=== PATIENT | female | born 2000 | race Caucasian/White ===

== ENCOUNTER 2020-01-24 13:17 | Inpatient (IN) | payer MEDICAID ==
[2020-01-24] MEDS ORDERED: Ondansetron 4 MG/2 ML SDV IVPUSH PRN (16:24)
[2020-01-24] MEDS ORDERED: Sodium Chloride 0.9% 10 ML Syringe FLUSH PRN (16:24)
[2020-01-24] MEDS ORDERED: Nalbuphine 10 MG/ML Syringe IVPUSH PRN (16:24)
[2020-01-24] MEDS ORDERED: Lactated Ringers 1,000 ML IV SCH (16:30)
[2020-01-24] MEDS ORDERED: Oxytocin/Lactated Ringers 10 UNIT/1,000 ML BAG IV SCH (16:30)
--- NOTE | 2020-01-24 16:36 | PCM.LDHP ---
L&D History of Present Illness - General Date of Service: 01/24/20 Admit Problem/Dx: Patient Status Order with Admit Dx/Problem 01/24/20 13:47 Patient Status [ADT] Routine 01/24/20 16:24 Patient Status [ADT] Routine Admission Diagnosis/Problem Admission Diagnosis/Problem Source of Information: Patient History Limitations: Reports: No Limitations - History of Present Illness Introduction:: 19 y/o at 40 4/7 who presents for concerns of labor. Doing well. Contractions about every 7 minutes. No bleeding or LOF - Related Data Allergies/Adverse Reactions: Allergies Allergy/AdvReac Type Severity Reaction Status Date / Time No Known Allergies Allergy Verified 01/24/20 14:41 Home Medications: Home Meds Vits #93/Iron Fum/FA [ Formula Tablet] 1 tab PO DAILY 01/24/20 [History] Past Medical History : 1 Para: 0 LMP (Approximate): Psychiatric History: Reports: Depression - Past Surgical History Other Surgical History Comment: No past surgical history Social & Family History - Tobacco Use Smoking Status *Q: Former Smoker - Alcohol Use Alcohol Use History: No - Recreational Drug Use Recreational Drug Use: No H&P Review of Systems - Review of Systems: Review Of Systems: See Below General: Reports: No Symptoms Pulmonary: Reports: No Symptoms Cardiovascular: Reports: No Symptoms Gastrointestinal: Reports: Abdominal Pain Genitourinary: Reports: No Symptoms Musculoskeletal: Reports: No Symptoms Psychiatric: Reports: No Symptoms Neurological: Reports: No Symptoms L&D Exam - Exam Exam: See Below - Vital Signs Weight: 52.254 kg - OB Specific Contraction Intensity: Moderate to Strong Movement: Active Heart Tones: Present Heart Tones per Min: 135 Heart Rate (FHR) Variability: Moderate (6-25 bmp) Presentation: Vertex - Clifton Score Clifton Score Cervix Position: Anterior Clifton Score Consistency: Soft Clifton Score Effacement: >80% Clifton Score Dilation: 3-4 cm Clifton Score 's Station: -1 ,0 Clifton Score Total: 11 - Exam General: Alert, Oriented, Cooperative Lungs: Clear to Auscultation, Normal Respiratory Effort Cardiovascular: Regular Rate, Regular Rhythm GI/Abdominal Exam: Soft, Non-Tender Genitourinary: Normal external exam Extremities: Normal Inspection Skin: Warm, Dry, Intact - Patient Data Lab Results Last 24 hrs: Laboratory Results - last 24 hr 01/24/20 Range/Units 13:30 SARS CoV-2 RNA Rapid BERTA Negative (NEGATIVE) - Problem List (1) Post-dates SNOMED Code(s): 88614621 ICD Code: O48.0 - POST-TERM Status: Acute Current Visit: Yes Qualifiers: Post-term type: 40-42 weeks gestation Qualified Code(s): O48.0 - Post-term Problem List Initiated/Reviewed/Updated: Yes Orders Last 24hrs: Active Orders 24 hr Category Date Time Status Patient Status [ADT] Routine ADT 01/24/20 13:47 Active Patient Status [ADT] Routine ADT 01/24/20 16:24 Active Activity as Tolerated [RC] PFP Care 01/24/20 16:24 Active Communication Order [RC] ASDIRECTED Care 01/24/20 16:24 Active Heart Tones [RC] ASDIRECTED Care 01/24/20 16:25 Active Non Stress Test [RC] PER UNIT ROUTINE Care 01/24/20 13:47 Active Notify Provider [RC] PFP Care 01/24/20 16:24 Active Notify Provider [RC] PRN Care 01/24/20 16:24 Active Peripheral IV Care [RC] . DIRECTED Care 01/24/20 16:25 Active Vital Signs [RC] PER UNIT ROUTINE Care 01/24/20 13:47 Active Regular Diet [DIET] Diet 01/24/20 Dinner Active Regular Diet [DIET] Diet 01/24/20 Dinner Active CBC W/O DIFF,HEMOGRAM [HEME] Routine Lab 01/24/20 16:24 Ordered RAPID PLASMA REAGIN,RPR [CHEM] Routine Lab 01/24/20 16:24 Ordered TYPE AND SCREEN [BBK] Routine Lab 01/24/20 16:24 Ordered Lactated Ringers [Ringers, Lactated] 1,000 ml Med 01/24/20 16:30 Active IV ASDIRECTED Nalbuphine [Nubain] Med 01/24/20 16:24 Active 10 mg IVPUSH Q2H PRN Ondansetron [Zofran] Med 01/24/20 16:24 Active 4 mg IVPUSH Q4H PRN Oxytocin/Lactated Ringers [Pitocin in LR 10 Units/1,000 Med 01/24/20 16:30 Active ML] 10 unit in 1,000 ml IV .CONTINUOUS Sodium Chloride 0.9% [Saline Flush] Med 01/24/20 16:24 Active 10 ml FLUSH ASDIRECTED PRN Electronic Heart Tones Ext w TOCO [WOMSER] Oth 01/24/20 16:24 Ordered Routine Electronic Heart Tones Internal [WOMSER] Per Unit Ot 01/24/20 16:24 Ordered Routine Peripheral IV Insertion Adult [OM.PC] Routine Oth 01/24/20 16:24 Ordered Resuscitation Status Routine Resus Stat 01/24/20 13:47 Ordered Medication Orders Lactated Ringer's (Ringers, Lactated) 1,000 mls @ 100 mls/hr IV ASDIRECTED NATALIE Oxytocin/Lactated Ringer's (Pitocin In Lr 10 Units/1,000 Ml) 10 unit in 1,000 mls @ 500 mls/hr IV .CONTINUOUS NATALIE Nalbuphine HCl (Nubain) 10 mg IVPUSH Q2H PRN PRN Reason: Pain Ondansetron HCl (Zofran) 4 mg IVPUSH Q4H PRN PRN Reason: Nausea/Vomiting Sodium Chloride (Saline Flush) 10 ml FLUSH ASDIRECTED PRN PRN Reason: Keep Vein Open Assessment/Plan Comment:: * Labs * GBS negative, no need for antibiotics * Pain management per patient preference * Anticipate
[2020-01-24] MEDS ORDERED: Lidocaine 1% 50 ML MDV ONE (21:41)
[2020-01-24] MEDS ORDERED: Lidocaine 1% 50 ML MDV INJECT ONE (21:42)
--- NOTE | 2020-01-24 22:58 | PCM.DEL ---
L & D Note - General Info Date of Service: 01/24/20 - Delivery Note Labor: Spontaneous Delivery Outcome: Livebirth Delivery Method: Spontaneous Vaginal Delivery-Single Delivery Mode: Spontaneous Presentation: Left Occiput Anterior ([place]) Nuchal Cord: None Anesthesia Type: None Amniotic Fluid Description: Clear Episiotomy Type: None Laceration: Periurethral Placenta: Intact, Spontaneous Cord: 3 Vessels Estimated Blood Loss: 200 Resuscitation Needed: Yes : Bulb Syringe, Stimulated, Warmed, Exline Used, Warmer Used Delivery Comments (Free Text/Narrative):: Patient found to be complete and began pushing. With maternal pushing effort head delivered from [place] presentation. No nuchal cord present. With gentle downward traction shoulders and body delivered. Infant placed on maternal abdomen. Cord clamped and cut. Cord blood obtained. Placenta allowed time to separate and expelled intact. Inspection of the perineum showed a small periurethral laceration. hemostatic and so not repaired - General Info Date of Service: 01/24/20 - Patient Data Vitals - Most Recent: Last Vital Signs Temp 37.4 C 01/24/20 18:55 Pulse 66 01/24/20 18:55 Resp 16 01/24/20 18:55 BP 126/75 01/24/20 18:55 Pulse Ox Weight - Most Recent: 52.254 kg - Problem List & Annotations (1) Post-dates SNOMED Code(s): 63118586 Code(s): O48.0 - POST-TERM Status: Acute Current Visit: Yes Qualifiers: Post-term type: 40-42 weeks gestation Qualified Code(s): O48.0 - Post-term (2) Vaginal delivery SNOMED Code(s): 444697230 Code(s): O80 - ENCOUNTER FOR FULL-TERM UNCOMPLICATED DELIVERY Status: Acute Current Visit: Yes - Problem List Review Problem List Initiated/Reviewed/Updated: Yes - My Orders Last 24 Hours: My Active Orders 01/24/20 13:47 Patient Status [ADT] Routine Vital Signs [RC] PER UNIT ROUTINE Resuscitation Status Routine 01/24/20 16:24 Patient Status [ADT] Routine Activity as Tolerated [RC] PFP Communication Order [RC] ASDIRECTED Notify Provider [RC] PFP Notify Provider [RC] PRN Nalbuphine [Nubain] 10 mg IVPUSH Q2H PRN Ondansetron [Zofran] 4 mg IVPUSH Q4H PRN Sodium Chloride 0.9% [Saline Flush] 10 ml FLUSH ASDIRECTED PRN Electronic Heart Tones Ext w TOCO [WOMSER] Routine Electronic Heart Tones Internal [WOMSER] Per Unit Routine Peripheral IV Insertion Adult [OM.PC] Routine 01/24/20 16:25 Peripheral IV Care [RC] . DIRECTED 01/24/20 16:30 Lactated Ringers [Ringers, Lactated] 1,000 ml IV ASDIRECTED Oxytocin/Lactated Ringers [Pitocin in LR 10 Units/1,000 ML] 10 unit in 1,000 ml IV .CONTINUOUS 01/24/20 Dinner Regular Diet [DIET] Regular Diet [DIET] 01/24/20 17:33 PATIENT RETYPE [BBK] Routine - Assessment Assessment:: PPD#0 - Plan Plan:: * Routine cares * Breast feeding * Discharge home in 1-2 days
[2020-01-24] MEDS ORDERED: Docusate Sodium 100 MG Cap PO PRN (23:10)
[2020-01-24] MEDS ORDERED: Acetaminophen 325 MG Tab PO PRN (23:10)
[2020-01-24] MEDS ORDERED: Witch Hazel Medicated Pads 40/Jar TOP PRN (23:10)
[2020-01-24] MEDS ORDERED: Benzocaine/Menthol 20%-0.5% Spray 56 GM Canister TOP PRN (23:10)
[2020-01-25] MEDS: Ibuprofen 600 MG Tab PO PRN ×2 (00:14→20:33)
--- NOTE | 2020-01-25 06:38 | PCM.PNPP ---
- General Info Date of Service: 01/25/20 Functional Status: Reports: Pain Controlled, Tolerating Diet, Ambulating, Urinating - Review of Systems General: Reports: No Symptoms Pulmonary: Reports: No Symptoms Cardiovascular: Reports: No Symptoms Gastrointestinal: Reports: No Symptoms Genitourinary: Reports: No Symptoms Musculoskeletal: Reports: No Symptoms Neurological: Reports: No Symptoms - Patient Data Vital Signs - Most Recent: Last Vital Signs Temp 36.4 C 01/25/20 05:12 Pulse 71 01/25/20 05:12 Resp 14 01/25/20 05:12 BP 111/72 01/25/20 05:12 Pulse Ox 95 01/25/20 05:12 Weight - Most Recent: 52.254 kg I&O - Last 24 Hours: Intake & Output 01/24/20 01/24/20 01/25/20 14:59 22:59 06:59 Intake Total 800 Balance 800 Lab Results - Last 24 Hours: Laboratory Results - last 24 hr 01/24/20 01/24/20 01/24/20 Range/Units 13:30 16:35 16:35 WBC 15.53 H (3.98-10.04) K/mm3 RBC 4.59 (3.98-5.22) M/mm3 Hgb 13.3 (11.2-15.7) gm/dl Hct 39.7 (34.1-44.9) % MCV 86.5 (79.4-94.8) fl MCH 29.0 (25.6-32.2) pg MCHC 33.5 (32.2-35.5) g/dl RDW Std Deviation 42.2 (36.4-46.3) fL Plt Count 182 (182-369) K/mm3 MPV 9.9 (9.4-12.3) fl RPR Non-reactive (NONREACTIVE) SARS CoV-2 RNA Rapid BERTA Negative (NEGATIVE) Blood Type Gel Antibody Screen 01/24/20 Range/Units 16:35 WBC (3.98-10.04) K/mm3 RBC (3.98-5.22) M/mm3 Hgb (11.2-15.7) gm/dl Hct (34.1-44.9) % MCV (79.4-94.8) fl MCH (25.6-32.2) pg MCHC (32.2-35.5) g/dl RDW Std Deviation (36.4-46.3) fL Plt Count (182-369) K/mm3 MPV (9.4-12.3) fl RPR (NONREACTIVE) SARS CoV-2 RNA Rapid BERTA (NEGATIVE) Blood Type A POSITIVE Gel Antibody Screen Negative Med Orders - Current: Current Medications Acetaminophen (Tylenol) 650 mg PO Q4H PRN PRN Reason: mild pain or fever Benzocaine/Menthol (Dermoplast Pain Relief [place]) 0 gm TOP ASDIRECTED PRN PRN Reason: Perineal Comfort Measure Last Admin: 01/25/20 00:15 Dose: 1 canister Documented by: Docusate Sodium (Colace) 100 mg PO BID PRN PRN Reason: Constipation Ibuprofen (Motrin) 600 mg PO Q4H PRN PRN Reason: Mild pain or fever Last Admin: 01/25/20 00:14 Dose: 600 mg Documented by: Wojciech Morrison (Magy) 1 pad TOP ASDIRECTED PRN PRN Reason: Perineal Comfort Measure Last Admin: 01/25/20 00:15 Dose: 1 tub Documented by: Discontinued Medications Lactated Ringer's (Ringers, Lactated) 1,000 mls @ 100 mls/hr IV ASDIRECTED NATALIE Oxytocin/Lactated Ringer's (Pitocin In Lr 10 Units/1,000 Ml) 10 unit in 1,000 mls @ 500 mls/hr IV .CONTINUOUS NATALIE Last Admin: 01/24/20 22:38 Dose: 500 mls/hr Documented by: Lidocaine HCl (Xylocaine 1%) Confirm Administered Dose 50 ml .ROUTE .STK-MED ONE Stop: 01/24/20 21:42 Last Admin: 01/24/20 21:47 Dose: Not Given Documented by: Lidocaine HCl (Xylocaine 1%) 10 ml INJECT ONETIME ONE Stop: 01/24/20 21:43 Nalbuphine HCl (Nubain) 10 mg IVPUSH Q2H PRN PRN Reason: Pain Last Admin: 01/24/20 19:55 Dose: 10 mg Documented by: Ondansetron HCl (Zofran) 4 mg IVPUSH Q4H PRN PRN Reason: Nausea/Vomiting Last Admin: 01/24/20 19:50 Dose: 4 mg Documented by: Sodium Chloride (Saline Flush) 10 ml FLUSH ASDIRECTED PRN PRN Reason: Keep Vein Open - Infant Interaction Infant Disposition, : [place] in Room with Family Interaction: Holding Infant Infant Feeding: Breastfed ; Nursed Well Support Person: Significant Other - Recovery Exam Fundal Tone: Firm Fundal Level: 2 Fingerbreadths Below Umbilicus Fundal Placement: Midline Lochia Amount: Scant Lochia Color: Rubra/Red Perineum Description: Other (see below) Other Perinuem Description: periurethral abrasion with no repair Episiotomy/Laceration: Approximated Bladder Status: Voiding Urinary Elimination: Voided - Exam General: Alert, Oriented, Cooperative GI/Abdominal Exam: Soft, Non-Tender Extremities: Normal Inspection - Problem List & Annotations (1) Post-dates SNOMED Code(s): 08294322 Code(s): O48.0 - POST-TERM Status: Acute Current Visit: Yes Qualifiers: Post-term type: 40-42 weeks gestation Qualified Code(s): O48.0 - Post-term (2) Vaginal delivery SNOMED Code(s): 675476789 Code(s): O80 - ENCOUNTER FOR FULL-TERM UNCOMPLICATED DELIVERY Status: Acute Current Visit: Yes - Problem List Review Problem List Initiated/Reviewed/Updated: Yes - My Orders Last 24 Hours: My Active Orders 01/24/20 Breakfast Regular Diet [DIET] 01/24/20 13:47 Resuscitation Status Routine 01/24/20 23:10 Acetaminophen [TylenoL] 650 mg PO Q4H PRN Benzocaine/Menthol [Dermoplast Pain Relief [place]] See Dose Instructions TOP ASDIRECTED PRN Docusate Sodium [Colace] 100 mg PO BID PRN Ibuprofen [Motrin] 600 mg PO Q4H PRN witch Luke [Tucks] 1 pad TOP ASDIRECTED PRN Heat Therapy [OM.PC] PRN 01/24/20 23:10 Activity as Tolerated [RC] PER UNIT ROUTINE Vital Signs [RC] 03,,15,21 Assess Lochia [WOMSER] Per Unit Routine Assess Uterine Involution [WOMSER] Per Unit Routine Breast Pump [WOMSER] Per Unit Routine Ice Therapy [OM.PC] Per Unit Routine Perineal Care [OM.PC] Per Unit Routine Peripheral IV Discontinue [OM.PC] Routine Sitz Bath [OM.PC] Per Unit Routine 01/25/20 23:10 Heat Therapy [OM.PC] PRN - Assessment Assessment:: PPD#1 - Plan Plan:: * Routine cares * Breast feeding * Discharge home tomorrow
--- NOTE | 2020-01-26 07:16 | PCM.PNPP ---
- General Info Date of Service: 01/26/20 Functional Status: Reports: Pain Controlled, Tolerating Diet, Ambulating, Urinating - Review of Systems General: Reports: No Symptoms Pulmonary: Reports: No Symptoms Cardiovascular: Reports: No Symptoms Gastrointestinal: Reports: No Symptoms Genitourinary: Reports: No Symptoms Musculoskeletal: Reports: No Symptoms - Patient Data Vital Signs - Most Recent: Last Vital Signs Temp 36.6 C 01/26/20 06:18 Pulse 75 01/26/20 06:18 Resp 14 01/26/20 06:18 BP 107/60 01/26/20 06:18 Pulse Ox 96 01/26/20 06:18 Weight - Most Recent: 52.254 kg Med Orders - Current: Current Medications Acetaminophen (Tylenol) 650 mg PO Q4H PRN PRN Reason: mild pain or fever Benzocaine/Menthol (Dermoplast Pain Relief [place]) 0 gm TOP ASDIRECTED PRN PRN Reason: Perineal Comfort Measure Last Admin: 01/25/20 00:15 Dose: 1 canister Documented by: Docusate Sodium (Colace) 100 mg PO BID PRN PRN Reason: Constipation Last Admin: 01/25/20 20:36 Dose: 100 mg Documented by: Ibuprofen (Motrin) 600 mg PO Q4H PRN PRN Reason: Mild pain or fever Last Admin: 01/25/20 20:33 Dose: 600 mg Documented by: Wojciech Morrison (Isaaccks) 1 pad TOP ASDIRECTED PRN PRN Reason: Perineal Comfort Measure Last Admin: 01/25/20 00:15 Dose: 1 tub Documented by: Discontinued Medications Lactated Ringer's (Ringers, Lactated) 1,000 mls @ 100 mls/hr IV ASDIRECTED NATALIE Oxytocin/Lactated Ringer's (Pitocin In Lr 10 Units/1,000 Ml) 10 unit in 1,000 mls @ 500 mls/hr IV .CONTINUOUS NATALIE Last Admin: 01/24/20 22:38 Dose: 500 mls/hr Documented by: Lidocaine HCl (Xylocaine 1%) Confirm Administered Dose 50 ml .ROUTE .STK-MED ONE Stop: 01/24/20 21:42 Last Admin: 01/24/20 21:47 Dose: Not Given Documented by: Lidocaine HCl (Xylocaine 1%) 10 ml INJECT ONETIME ONE Stop: 01/24/20 21:43 Last Admin: 01/25/20 06:45 Dose: Not Given Documented by: Nalbuphine HCl (Nubain) 10 mg IVPUSH Q2H PRN PRN Reason: Pain Last Admin: 01/24/20 19:55 Dose: 10 mg Documented by: Ondansetron HCl (Zofran) 4 mg IVPUSH Q4H PRN PRN Reason: Nausea/Vomiting Last Admin: 01/24/20 19:50 Dose: 4 mg Documented by: Sodium Chloride (Saline Flush) 10 ml FLUSH ASDIRECTED PRN PRN Reason: Keep Vein Open - Infant Interaction Infant Disposition, : [place] in Room with Family Infant Interaction: Holding Infant Infant Feeding: Breastfed Infant; Nursed Well Support Person: Significant Other - Recovery Exam Fundal Tone: Firm Fundal Level: 3 Fingerbreadths Below Umbilicus Fundal Placement: Midline Lochia Amount: Scant, Small Lochia Color: Rubra/Red Perineum Description: Other (see below) Other Perinuem Description: periurethral abrasion with no repair Episiotomy/Laceration: None Bladder Status: Nonpalpable, Voiding Urinary Elimination: Voided - Exam General: Alert, Oriented, Cooperative GI/Abdominal Exam: Soft, Non-Tender Extremities: Normal Inspection - Problem List & Annotations (1) Post-dates SNOMED Code(s): 16506324 Code(s): O48.0 - POST-TERM Status: Acute Current Visit: Yes Qualifiers: Post-term type: 40-42 weeks gestation Qualified Code(s): O48.0 - Post-term (2) Vaginal delivery SNOMED Code(s): 841060827 Code(s): O80 - ENCOUNTER FOR FULL-TERM UNCOMPLICATED DELIVERY Status: Acute Current Visit: Yes - Problem List Review Problem List Initiated/Reviewed/Updated: Yes - My Orders Last 24 Hours: My Active Orders 01/25/20 23:10 Heat Therapy [OM.PC] PRN 01/26/20 07:15 Ready for Discharge [RC] PER UNIT ROUTINE - Assessment Assessment:: PPD#2 - Plan Plan:: * Routine cares * Breast feeding * Discharge home today
--- NOTE | 2020-01-26 07:16 | PCM.DCSUM1 ---
Discharge Summary - Discharge Data Discharge Date: 01/26/20 Discharge Disposition: Home, Self-Care 01 Condition: Good - Referral to Home Health Primary Care Physician: Emilia Stark MD - Discharge Diagnosis/Problem(s) (1) Post-dates SNOMED Code(s): 54265232 ICD Code: O48.0 - POST-TERM Status: Acute Current Visit: Yes Qualifiers: Post-term type: 40-42 weeks gestation Qualified Code(s): O48.0 - Post-term (2) Vaginal delivery SNOMED Code(s): 993507850 ICD Code: O80 - ENCOUNTER FOR FULL-TERM UNCOMPLICATED DELIVERY Status: Acute Current Visit: Yes - Patient Summary/Data Complications: None Consults: None Recommended Follow-up Testing/Procedures: Follow up in 3 weeks for check Hospital Course: 19 y/o at 40 4/7 wks who presented in labor. Made good change without need for augmentation. Underwent an uncomplicated . See delivery note. did well and was discharged home on PPD#2 - Patient Instructions Diet: Regular Diet as Tolerated Activity: As Tolerated Activity, Other: Pelvic rest for 6 weeks Driving: May Drive Today Showering/Bathing: May Shower Showering/Bathing, Other: May Bathe Notify Provider of: Fever, Increased Pain, Swelling and Redness, Drainage, Nausea and/or Vomiting - Discharge Plan *PRESCRIPTION DRUG MONITORING PROGRAM REVIEWED*: No *COPY OF PRESCRIPTION DRUG MONITORING REPORT IN PATIENT MAIKOL: No Home Medications: Home Meds Vits #93/Iron Fum/FA [ Formula Tablet] 1 tab PO DAILY 01/24/20 [History] Ibuprofen [Motrin] 600 mg PO Q4H PRN tablet 01/25/20 [Rx] Patient Handouts: Exclusive , Care After Vaginal Delivery Referrals: Emilia Stark MD [Primary Care Provider] - (3 weeks for check ) - Discharge Summary/Plan Comment DC Time >30 min.: No - Patient Data Vitals - Most Recent: Last Vital Signs Temp 36.6 C 01/26/20 06:18 Pulse 75 01/26/20 06:18 Resp 14 01/26/20 06:18 BP 107/60 01/26/20 06:18 Pulse Ox 96 01/26/20 06:18 Weight - Most Recent: 52.254 kg Med Orders - Current: Current Medications Acetaminophen (Tylenol) 650 mg PO Q4H PRN PRN Reason: mild pain or fever Benzocaine/Menthol (Dermoplast Pain Relief [place]) 0 gm TOP ASDIRECTED PRN PRN Reason: Perineal Comfort Measure Last Admin: 01/25/20 00:15 Dose: 1 canister Documented by: Docusate Sodium (Colace) 100 mg PO BID PRN PRN Reason: Constipation Last Admin: 01/25/20 20:36 Dose: 100 mg Documented by: Ibuprofen (Motrin) 600 mg PO Q4H PRN PRN Reason: Mild pain or fever Last Admin: 01/25/20 20:33 Dose: 600 mg Documented by: Wojciech Morrison (Tucks) 1 pad TOP ASDIRECTED PRN PRN Reason: Perineal Comfort Measure Last Admin: 01/25/20 00:15 Dose: 1 tub Documented by: Discontinued Medications Lactated Ringer's (Ringers, Lactated) 1,000 mls @ 100 mls/hr IV ASDIRECTED NATALIE Oxytocin/Lactated Ringer's (Pitocin In Lr 10 Units/1,000 Ml) 10 unit in 1,000 mls @ 500 mls/hr IV .CONTINUOUS NATALIE Last Admin: 01/24/20 22:38 Dose: 500 mls/hr Documented by: Lidocaine HCl (Xylocaine 1%) Confirm Administered Dose 50 ml .ROUTE .STK-MED ONE Stop: 01/24/20 21:42 Last Admin: 01/24/20 21:47 Dose: Not Given Documented by: Lidocaine HCl (Xylocaine 1%) 10 ml INJECT ONETIME ONE Stop: 01/24/20 21:43 Last Admin: 01/25/20 06:45 Dose: Not Given Documented by: Nalbuphine HCl (Nubain) 10 mg IVPUSH Q2H PRN PRN Reason: Pain Last Admin: 01/24/20 19:55 Dose: 10 mg Documented by: Ondansetron HCl (Zofran) 4 mg IVPUSH Q4H PRN PRN Reason: Nausea/Vomiting Last Admin: 01/24/20 19:50 Dose: 4 mg Documented by: Sodium Chloride (Saline Flush) 10 ml FLUSH ASDIRECTED PRN PRN Reason: Keep Vein Open
== END 2020-01-26 09:45 | disposition home or self-care (01) | DRG 807 ==
LOC: JD.OB 13:17 → JD.OBCHECK 13:17 → JD.OB 16:24 → OBSVTOIN 22:38 → JD.OB 22:39
PROVIDERS: ADMIT Obstetrics & Gynecology; ATTEND Obstetrics & Gynecology
PROC: 10E0XZZ Delivery of Products of Conception, External Approach (ICD-10-PCS; principal; 2020-01-24)
PROC: 10907ZC Drainage of Amniotic Fluid, Therapeutic from Products of Conception, Via Natural or Artificial Opening (ICD-10-PCS; 2020-01-24)
DX: O48.0 Post-term pregnancy (principal); Z37.0 Single live birth; Z3A.40 40 weeks gestation of pregnancy; Z79.899 Other long term (current) drug therapy; Z87.891 Personal history of nicotine dependence; O70.0 First degree perineal laceration during delivery; Z20.828 Contact with and (suspected) exposure to other viral communicable diseases
CPT/HCPCS: 36415; 59025; 59409; 85027; 86592; 86850; 86900; 86901; A9270-GY; J2300; J2405; J2590; U0002